=== PATIENT | male | born 1955 | race Caucasian/White ===

== ENCOUNTER 2023-03-31 15:17 | Outpatient (REF) | payer OTHER, SELFPAY ==
--- NOTE | ~2023-03-31 | MR_ITS ---
EXAMINATION: MR LUMBAR SPINE WITHOUT CONTRAST CLINICAL INFORMATION: Pain left hip/leg. COMPARISON: None TECHNIQUE: MRI of the lumbar spine was obtained using routine sequences without contrast. FINDINGS: The lumbar vertebral bodies maintain normal heights. There is mild retrolisthesis of L3 on L4 and mild anterolisthesis of L4 on L5. There is multilevel intervertebral disc height loss most advanced at L5-S1 with chronic fatty degenerative endplate changes and a small Schmorl's node. The distal spinal cord appears normal. The conus medullaris terminates normally at the L1-L2 level. The visualized paraspinal muscles and intra-abdominal and pelvic contents are within normal limits. SPINAL LEVELS: L1-L2: Mild disc bulging. No spinal canal or neural foraminal stenosis. L2-L3: Mild disc bulging. No spinal canal or neural foraminal stenosis. L3-L4: Disc bulging with left subarticular extrusion with inferior migration resulting in compression of the traversing left L4 nerve root. Right subarticular protrusion compresses the traversing right L4 nerve root. Ligament flavum infolding and facet arthropathy contributes to moderate spinal canal stenosis. Bulging disc within the left neural foramen contacts the extraforaminal left L3 nerve root. L4-L5: Disc bulging with ligamentum flavum infolding and severe facet arthropathy resulting in severe spinal canal stenosis with compression of the thecal sac and traversing right more than left L5 nerve roots. Mild narrowing of the neural foramina without foraminal nerve root compression. L5-S1: Disc bulging with broad-based left subarticular protrusion compressing the traversing left S1 nerve root and at least abutting the traversing right S1 nerve root. No foraminal nerve root compression. MR/MR lumbar spine wo con IMPRESSION: 1. At L3-L4 there is left subarticular extrusion with inferior migration resulting in compression of the traversing left L4 nerve root. Right subarticular protrusion compresses the traversing right L4 nerve root. Moderate spinal canal stenosis. 2. At L4-L5 there is severe spinal canal stenosis with compression of the thecal sac and traversing right more than left L5 nerve roots. 3. At L5-S1 there is left subarticular protrusion compressing the traversing left more than right S1 nerve root.
== END 2023-03-31 15:18 | disposition home or self-care (01) ==
LOC: HO.MRI 15:17
PROVIDERS: Visit Provider Internal Medicine
DX: M25.552 Pain in left hip (principal); M79.605 Pain in left leg
CPT/HCPCS: 72148

== ENCOUNTER 2023-12-27 19:23 | Outpatient (REF) | payer OTHER, SELFPAY ==
--- NOTE | ~2023-12-27 | MR_ITS ---
EXAMINATION: MR KNEE WITHOUT CONTRAST, RIGHT CLINICAL INFORMATION: Pain. COMPARISON: None available. TECHNIQUE: MRI of the knee without contrast was performed using routine sequences on a high-field scanner. FINDINGS: MENISCI: Medial Meniscus: Intact. Lateral Meniscus: The posterior horn and body lateral meniscus are diminutive with significant loss of meniscal tissue as well as a ill-defined horizontal tear. Deep posterior horn near the root, there is a small 8 mm undersurface flap fragment which is extruded peripherally towards the posterior recess. Remaining meniscal tissue at the body is laterally extruded from the joint line with surrounding soft tissue edema. LIGAMENTS: Cruciate: Intact. Collateral: Intact. EXTENSOR MECHANISM: Mild quadriceps and patellar tendinosis. No tears. ARTICULAR CARTILAGE/BONE: Patellofemoral Compartment: Moderate to high-grade articular cartilage loss of the patella is most pronounced in the transverse band centrally crossing both the medial and lateral facets, associated with cortical irregularity, subcortical edema, and subcortical cystic change. Small marginal osteophytes. More minimal chondral thinning is noted in the central trochlea. Normal trochlear morphology. Medial Compartment: Mild partial-thickness cartilage loss at the medial femoral condyle weightbearing surface with an associated 5 x 4 mm band of full-thickness chondral delamination. Additional full-thickness fissuring and cartilage loss is apparent at the posterior weightbearing surface. Lateral Compartment: At the posterior weightbearing surface of the lateral femoral condyle, there is a 1.5 x 1.4 cm high-grade chondral defect with more moderate surrounding cartilage loss. There is underlying edema signal in the lateral condyle with articular sclerosis and subtle cortical flattening. No additional full-thickness cartilage loss present at the lateral third of the lateral femoral condyle with associated subarticular sclerosis and edema signal. More mild chondral thinning medial to this with full-thickness fissuring and subchondral edema. JOINT FLUID AND BURSAE: Moderate-sized joint effusion and Escalante's cyst. Mild synovitis. Small loose bodies in the posterior recess of the medial compartment measure up to 5 mm in diameter. Additional small chondral loose bodies in the anterior recess of the lateral compartment, measuring up to 4 mm in diameter. MR/MR knee RT wo con IMPRESSION: 1. [id number] lateral compartment osteoarthritis with broad areas of high-grade cartilage loss of both the lateral femoral condyle and lateral tibial plateau and an associated complex tear of the lateral meniscus with loss of meniscal tissue and extrusion of the meniscal body. 2. 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 3. Moderate-sized joint effusion and Escalante's cyst with small loose bodies. 4. Mild quadriceps and patellar tendinosis. Electronically signed by: Matt De Souza MD 12/28/2023 08:17 AM EDT RP
== END 2023-12-27 19:24 | disposition home or self-care (01) ==
LOC: HO.MRI 19:23
PROVIDERS: Visit Provider Student in an Organized Health Care Education/Training Program
DX: M25.561 Pain in right knee (principal)
CPT/HCPCS: 73721